=== PATIENT | male | born 1970 | race Caucasian/White ===

== ENCOUNTER 2016-10-04 07:51 | Emergency (ER) | payer OTHER ==
[2016-10-04 07:55] VITALS: RESP 20
[2016-10-04] MEDS ORDERED: NS 1,000 ML IV ONE (07:57)
--- NOTE | 2016-10-04 07:58 | EDPHY ---
H & P Time Seen by Provider: 10/04/16 07:56 HPI/ROS: CHIEF COMPLAINT: Right flank pain. HISTORY OF PRESENT ILLNESS: The patient is a 46-year-old male with remote kidney stone history who presents with right flank pain that began at 0630 this morning (1.5 hours ago). The pain onset suddenly this morning and was initially achy. It is severe in nature. It radiates around to his groin. The pain is causing nausea but he has not vomited. He is having difficulty getting comfortable and denies alleviating factors. He denies dysuria, hematuria, fever , diarrhea, shortness of breath, or other complaints. REVIEW OF SYSTEMS: A complete 10-point review of systems was performed and is negative except for those items mentioned in the HPI. Past Medical/Surgical History: Denies. Social History: Nonsmoker. Smoking Status: Never smoked Physical Exam: General Appearance: Alert, appears uncomfortable. Eyes: Pupils equal and round, no conjunctival pallor or injection ENT, Mouth: Mucous membranes moist Neck: Normal inspection Respiratory: Lungs are clear to auscultation Cardiovascular: Regular rate and rhythm Gastrointestinal: Abdomen is soft and non-tender Back: No CVA tenderness Neurological: A&O, nonfocal, normal gait Skin: Warm and dry, no rash Extremities: normal inspection Psychiatric: Mood and affect normal Constitutional: Initial Vital Signs Temperature (C) 36.3 C 10/04/16 07:53 Heart Rate 64 10/04/16 07:53 Respiratory Rate 20 10/04/16 07:53 Blood Pressure 151/94 H 10/04/16 07:53 O2 Sat (%) 93 10/04/16 07:53 O2 Delivery Mode Room Air Allergies/Adverse Reactions: No Known Allergies Allergy (Unverified 10/04/16 07:53) Home Medications: Medication Instructions Recorded NK [No Known Home Meds] 10/04/16 Medical Decision Making - Diagnostics Imaging: Imaging Impressions Abdomen/Pelvis CT 10/04/16 08:08 Impression: 1. Punctate right nephrolithiasis with mild right caliectasis and very mild right ureteronephrosis. There is a 2 mm calculus in the posterior right aspect of the urinary bladder beyond the ureterovesical junction. 2. There is a 2.4 x 2.6 x 2.8 cm left renal cortical hypodense lesion, probably representing a cyst, however confirmation with sonography is recommended. Attention: This CT examination is specifically designed to evaluate patients who are clinically suspected of having acute obstructive uropathy. This examination does not use radiographic contrast, and as such, provides only a limited evaluation of the abdomen, pelvis, and retroperitoneum. If there is further clinical suspicion for pathological conditions other than obstructive uropathy, a complete CT evaluation of the abdomen and pelvis utilizing intravenous, oral, and rectal contrast should be considered. Findings and recommendations were discussed with KAITLYN DALE MD at 9:11 am , on 10/04/2016. ED Course/Re-evaluation: 46-year-old male presents with severe right flank pain that began an hour and a half prior to presentation today. The pain radiates around to his groin. He is nauseated but has no other associated symptoms. He is quite visibly uncomfortable and denies any position that alleviates the pain. His exam is negative. I have high suspicion for kidney stone in this patient. An IV was established and basic blood work ordered. 1L IV saline, 15mg IV Toradol, 4mg IV Zofran administered. Abdominal CT ordered. 2027: Reassessed patient. He is feeling much better after the Toradol and appears to be in less pain. Lab work is unremarkable. 914: CT results conveyed to me by Dr. Waldron, radiology. He reports a kidney stone in the patient's bladder and a left renal cyst that will need ultrasound follow up. See Imaging section for official radiology report. I have discussed this with the patient at this time and answered his questions. He is completely pain free at this time and is comfortable with the plan. Differential Diagnosis: The differential diagnosis for the patient's abdominal pain included but was not limited to appendicitis, cholecystitis, hernias, testicular torsion, gastritis, and urinary tract infection. - Data Points Laboratory Results: Laboratory Results 10/04/16 08:10 10/04/16 08:10 10/04/16 10/04/16 08:10 08:10 WBC 5.50 10^3/uL 10^3/uL (3.80-9.50) RBC 5.04 10^6/uL 10^6/uL (4.40-6.38) Hgb 15.7 g/dL g/dL (13.7-17.5) Hct 44.8 % % (40.0-51.0) MCV 88.9 fL fL (81.5-99.8) MCH 31.2 pg pg (27.9-34.1) MCHC 35.0 g/dL g/dL (32.4-36.7) RDW 12.9 % % (11.5-15.2) Plt Count 309 10^3/uL 10^3/uL (150-400) MPV 10.4 fL fL (8.7-11.7) Neut % (Auto) 42.5 % % (39.3-74.2) Lymph % (Auto) 43.6 % % (15.0-45.0) [place] % (Auto) 10.4 % % (4.5-13.0) Eos % (Auto) 2.4 % % (0.6-7.6) Baso % (Auto) 0.9 % % (0.3-1.7) Nucleat RBC Rel Count 0.0 % % (0.0-0.2) Absolute Neuts (auto) 2.34 10^3/uL 10^3/uL (1.70-6.50) Absolute Lymphs (auto) 2.40 10^3/uL 10^3/uL (1.00-3.00) Absolute Monos (auto) 0.57 10^3/uL 10^3/uL (0.30-0.80) Absolute Eos (auto) 0.13 10^3/uL 10^3/uL (0.03-0.40) Absolute Basos (auto) 0.05 10^3/uL 10^3/uL (0.02-0.10) Absolute Nucleated RBC 0.00 10^3/uL 10^3/uL (0-0.01) Immature Gran % 0.2 % % (0.0-1.1) Immature Gran # 0.01 10^3/uL 10^3/uL (0.00-0.10) Sodium 138 mEq/L mEq/L (134-144) Potassium 3.7 mEq/L mEq/L (3.5-5.2) Chloride 104 mEq/L mEq/L (97-110) Carbon Dioxide 21 mEq/l L mEq/l (22-31) Anion Gap 13 mEq/L mEq/L (8-16) BUN 18 mg/dL mg/dL (7-23) Creatinine 1.1 mg/dL mg/dL (0.7-1.3) Estimated GFR > 60 Glucose 100 mg/dL mg/dL (70-100) Calcium 9.8 mg/dL mg/dL (8.5-10.4) Medications Given: Discontinued Medications Sodium Chloride (Ns) 1,000 mls @ 0 mls/hr IV ONCE ONE PRN Reason: Wide Open Stop: 10/04/16 07:58 Last Admin: 10/04/16 08:14 Dose: 1,000 mls Ketorolac Tromethamine (Toradol) 15 mg IVP EDNOW ONE Stop: 10/04/16 08:09 Last Admin: 10/04/16 08:14 Dose: 15 mg Ondansetron HCl (Zofran) 4 mg IVP EDNOW ONE Stop: 10/04/16 08:09 Last Admin: 10/04/16 08:15 Dose: 4 mg Departure - Departure Disposition: Home, Routine, Self-Care Clinical Impression: Kidney stone on right side Condition: Good Instructions: Kidney Stones (ED) Additional Instructions: Follow up with your primary care provider this week for reevaluation. There was a renal cyst seen on your left kidney and this will need ultrasound follow up. If you need a primary care provider you were given the telephone number of the on-call provider. Return to the emergency department for any serious worsening of condition. Referrals: Savage Rutherford, [Doctor of Osteopathy] - As per Instructions Report Scribed for: Kaitlyn Dale Report Scribed by: Vinicius Henriquez Date of Report: 10/04/16 Time of Report: 07:57 Physician Review and Approval Statement: 10/04/16 07:57 Portions of this note were transcribed by a medical physiologist. I personally performed a history, physical exam, medical decision making, and confirmed accuracy of information the transcribed note.
[2016-10-04] MEDS ORDERED: ONDANSETRON 4 MG/2 ML VIAL IVP ONE (08:08)
[2016-10-04] MEDS ORDERED: KETOROLAC 30 MG/1 ML SDV IVP ONE (08:08)
[2016-10-04 08:21] LABS: % IMMATURE GRANULYOCYTES 0.2 % (0.0-1.1); ABSOLUTE IMMATURE GRANULOCYTES 0.01 10^3/uL (0.00-0.10); ADD DIFF? NO; ADD MORPH? NO; ADD SCAN? NO; ATYPICAL LYMPHOCYTE FLAG 20 (0-99); FRAGMENT RBC FLAG 0 (0-99); HEMATOCRIT 44.8 % (40.0-51.0); HEMOGLOBIN 15.7 g/dL (13.7-17.5); LEFT SHIFT FLG 0 (0-99); LIPEMIA HEMOLYSIS FLAG 90 (0-99); MEAN CELL HEMOGLOBIN 31.2 pg (27.9-34.1); MEAN CELL VOLUME 88.9 fL (81.5-99.8); MEAN PLATELET VOLUME 10.4 fL (8.7-11.7); PLATELET CLUMPS FLAG 0 (0-99); PLATELET COUNT 309 10^3/uL (150-400); RED BLOOD CELL COUNT 5.04 10^6/uL (4.40-6.38); RED CELL DISTRIBUTION WIDTH 12.9 % (11.5-15.2)
[2016-10-04 08:35] LABS: ANION GAP 13 mEq/L (8-16); CALCIUM 9.8 mg/dL (8.5-10.4); CARBON DIOXIDE 21 mEq/l (22-31); CHLORIDE 104 mEq/L (97-110); CREATININE 1.1 mg/dL (0.7-1.3); GLOMERULAR FILTRATION RATE > 60; GLUCOSE 100 mg/dL (70-100); POTASSIUM 3.7 mEq/L (3.5-5.2); SODIUM 138 mEq/L (134-144)
[2016-10-04 09:23] VITALS: BP 135/67; PULSE 82; TEMP 98.6; O2SAT 95
== END 2016-10-04 09:28 | disposition home or self-care (01) ==
DX: N20.0 Calculus of kidney (principal)
CPT/HCPCS: 96374; J1885; J2405